=== PATIENT | male | born 1965 ===

== ENCOUNTER 2024-11-03 21:54 | Emergency (ER) | payer OTHER ==
[~2024-11-03] VITALS: Ht 180.3 cm; Wt 79.4 kg
[2024-11-03] MEDS ORDERED: FentaNYL Citrate 50 MCG/ML 2 ML Injection IV ONE (22:15)
[2024-11-03 22:25] LABS: BASOPHILS ABSOLUTE AUTO 0.05 K/mm3 (0.00-0.23); BASOPHILS PERCENT AUTO 1 % (0-2); EOSINOPHILS PERCENT AUTO 4 % (0-6); Hematocrit 38.2 % (37.0-53.0); Hemoglobin 13.5 g/dL (13.5-17.5); IMMATURE GRAN ABSOLUTE AUTO 0.02 K/mm3 (0.00-0.10); IMMATURE GRAN PERCENT AUTO 0 % (0-1); LYMPHOCYTES ABSOLUTE AUTO 3.19 K/mm3 (0.84-5.20); LYMPHOCYTES PERCENT AUTO 42 % (21-46); MONOCYTES ABSOLUTE AUTO 0.51 K/mm3 (0.16-1.47); MONOCYTES PERCENT AUTO 7 % (4-13); Mean Corpuscular HGB 31.9 pg (26.0-34.0); Mean Corpuscular HGB Conc 35.3 g/dL (31.5-36.5); Mean Corpuscular Volume 90 fL (80-100); Mean Platelet Volume 10.4 fL (9.1-12.4); NEUTROPHILS ABSOLUTE AUTO 3.49 K/mm3 (1.96-9.15); NEUTROPHILS PERCENT AUTO 46 % (41-73); Platelet Count 230 K/mm3 (150-400); RDW Coefficient Variation 12.1 % (11.7-14.2); Red Blood Cell Count 4.23 M/mm3 (4.30-5.90); White Blood Cell Count 7.56 K/mm3 (4.00-11.30)
[2024-11-03] MEDS ORDERED: FentaNYL Citrate 50 MCG/ML 2 ML Injection IV PRN (22:40)
[2024-11-03] MEDS ORDERED: CeFAZolin Sodium 2,000 MG in NS 100 ML IV ONE (22:40)
[2024-11-03] MEDS ORDERED: Diphth,Pertuss(Acell),Tet Vac 0.5 ML VIAL IM ONE (22:55)
[2024-11-03 23:08] LABS: Albumin, Blood 3.8 g/dL (3.4-5.0); Albumin/Globulin Ratio 1.2 (0.8-1.8); Bilirubin, Total 0.6 mg/dL (0.1-1.0); Bun/Creatinine Ratio 16.6 (12.0-20.0); Calcium, Blood 8.7 mg/dL (8.5-10.1); Creatinine, Blood 0.78 mg/dL (0.60-1.20); Globulin, Blood 3.3 g/dL (2.2-4.0); Potassium, Blood 4.1 mmol/L (3.5-5.5); Total Protein, Blood 7.1 g/dL (6.4-8.2)
[2024-11-03] MEDS ORDERED: NS 1,000 ML IV SCH (23:50)
[2024-11-04] MEDS ORDERED: NOVOLIN N100 UNIT/2 (00:01)
[2024-11-04] MEDS ORDERED: NOVOLIN R100 UNIT/2 (00:02)
[2024-11-04] MEDS ORDERED: Ondansetron HCl 2 MG / ML 2ML Vial IV ONE (00:40)
[2024-11-04] MEDS ORDERED: Morphine Sulfate 4 MG/1 ML Injection IV ONE (00:40)
[2024-11-04] MEDS ORDERED: Insulin Regular 100 UNIT/ML 10ML Vial SC SCH (00:49)
[2024-11-04] MEDS ORDERED: RX Prepack 2 Sprays Naloxone HCL 4 MG/SPRAY UD ONE (02:30)
[2024-11-04] MEDS ORDERED: RX Prepack 6 Tabs Oxycodone 5mg UD ONE (02:30)
[2024-11-04] MEDS ORDERED: NS 1,000 ML IV SCH (02:40)
[2024-11-04 02:55] LABS: Source, Urine Clean Catch
[2024-11-04 03:18] LABS: Bilirubin, Urine Neg (Neg); Blood, Urine Neg (Neg); Glucose Qualitative, Urine 4+ (Neg); Ketones, Urine 2+ (Neg); Leukocyte Esterase, Urine Neg (Neg); Nitrite, Urine Neg (Neg); Protein, Urine Neg (Neg); Specific Gravity, Urine 1.015 (1.003-1.022); Urobilinogen, Urine NORM (Normal)
[2024-11-04 03:24] LABS: Appearance, Urine Clear (Clear); Color, Urine Pale Yellow (P-Yellow)
[2024-11-04 03:47] LABS: Base Excess Venous -4.6 mmol/L; Bicarbonate Venous 21.2 mmol/L (24.0-30.0); PCO2 Venous 34.3 mmHg (38-42); pH Blood Venous 7.38 (7.34-7.37)
[2024-11-04 04:50] LABS: Beta-hydroxybutyrate 15.4 mg/dL (0.2-2.8); Bun/Creatinine Ratio 18.3 (12.0-20.0); Calcium, Blood 7.7 mg/dL (8.5-10.1); Creatinine, Blood 0.71 mg/dL (0.60-1.20)
== END 2024-11-04 04:02 | disposition home or self-care (01) ==
LOC: ER 21:54
PROVIDERS: Emergency Medicine; Student in an Organized Health Care Education/Training Program
DX: S82.451B Displaced comminuted fracture of shaft of right fibula, initial encounter for open fracture type I or II (principal); S82.201B Unspecified fracture of shaft of right tibia, initial encounter for open fracture type I or II; W18.30XA Fall on same level, unspecified, initial encounter; E16.2 Hypoglycemia, unspecified; Z59.89 Other problems related to housing and economic circumstances; Z88.2 Allergy status to sulfonamides
CPT/HCPCS: 27752; 72170; 73552; 73590; 73600; 80048; 80053; 81003; 82010; 82803; 82947; 85025; 90471; 90715; 96365-59; 96375; 96375-59; 96376; 96376-59; 99283-25; A9270; J0690; J1815; J2270; J2405; J3010; J7030